=== PATIENT | female | born 1955 | race Caucasian/White ===

== ENCOUNTER 2025-04-19 07:16 | Emergency (ER) | payer BC, MEDICAID ==
[~2025-04-19] VITALS: Ht 152.4 cm; Wt 56.8 kg
[2025-04-19 07:29] VITALS: TEMP 97.8
--- NOTE | 2025-04-19 08:39 | Physician Documentation ---
History of Present Illness ~ Chief Complaint: Knee Pain Stated Complaint: RT KNEE PAIN Time Seen by MD: 08:04 HPI 69-year-old female presenting with leg swelling and right knee pain She reports a history of chronic right knee pain over the past many weeks or months. She states that it is very painful in the morning and then slowly loosens up throughout the day. She states that recently it has become more painful and swollen. She also reports that both of her legs have been swelling, and that earlier this week her ankles with the size of her knees. She denies any specific injury to her knees. She has been walking a lot. She does have blisters on her feet. No fevers. She denies any history of congestive heart failure or kidney problems. She tells me she is mainly concerned about the worsening swelling and right knee pain. Tetanus witin 5 years: No Medication Reconciliation Allergies: Coded Allergies: Penicillins (Verified Allergy, Unknown, HYPERTHERMIA, 04/19/25) Scheduled Furosemide (Lasix), 1 TAB PO DAILY Potassium Chloride (Potassium Chloride), 1 TAB PO DAILY Review of Systems Constitutional: Denies: fever Cardiovascular: Reports: edema Musculoskeletal: Reports: joint pain, joint swelling Physical Exam Vital Signs: Temperature: 97.8, Source: Temporal, Heart Rate: 66, Respiratory Rate: 14, BP: 127/67, Pulse Oximetry: 100, Weight: 56.800 Oxygen Flow Rate: 0 Physical Exam General: This is a calm and pleasant middle-aged woman, does not appear in distress HEENT: Atraumatic, oropharynx is moist Heart: Regular rate and rhythm, normal-appearing peripheral perfusion Lungs: normal work of breathing, normal oxygen saturation on room air Extremities: Warm and well-perfused The patient does have pitting edema to bilateral calves, right slightly worse than left. Right knee: The patient has generalized edema to the right knee, with no overlying erythema, warmth or other skin changes. She has mild tenderness to palpation, worse in the posterior knee. No posterior calf or thigh tenderness. She does have full range of motion to the knee. Neuro: Alert and oriented Psychiatric: Calm and cooperative with exam Progress Results/Orders Results/Orders Orders - TUYET AVILES MD Knee, Complete (04/19/25 08:20) Completed Orders - TUYET AVILES MD Cbc/Diff (04/19/25 08:20) CMP (04/19/25 08:20) D-Dimer (04/19/25 08:20) PBNP (04/19/25 08:20) Knee, Complete (04/19/25 08:20) Vital Signs 04/19/25 04/19/25 04/19/25 07:29 08:24 10:16 Temp 97.8 Pulse 93 66 68 Resp 20 14 14 B/P (MAP) 131/59 127/67 (87) 115/61 Pulse Ox 98 100 100 O2 Flow Rate 0 0 Laboratory Tests Test 04/19/25 08:52 White Blood Count 6.7 Red Blood Count 4.00 L Hemoglobin 11.9 L Hematocrit 36.4 Mean Corpuscular Volume 91.0 Mean Corpuscular Hemoglobin 29.7 Mean Corpuscular Hemoglobin Concent 32.7 L Red Cell Distribution Width 12.9 Platelet Count 314 Mean Platelet Volume 8.2 Neutrophils (%) (Auto) 72.0 Lymphocytes (%) (Auto) 15.9 L Monocytes (%) (Auto) 8.2 Eosinophils (%) (Auto) 3.0 Basophils (%) (Auto) 0.9 Neutrophils # (Auto) 4.8 Lymphocytes # (Auto) 1.1 Monocytes # (Auto) 0.5 Eosinophils # (Auto) 0.2 Basophils # (Auto) 0.1 CBC Comment D-Dimer 0.36 D-Dimer Comment Sodium Level 143 Potassium Level 4.3 Chloride Level 110 H Carbon Dioxide Level 27.8 Anion Gap 5 L Blood Urea Nitrogen 8 Creatinine 0.54 Estimated GFR/1.73 m2 > 90 BUN/Creatinine Ratio 14.8 Glucose Level 107 H Calcium Level 8.8 Total Bilirubin 0.3 Aspartate Amino Transf (AST/SGOT) 69 H Alanine Aminotransferase (ALT/SGPT) 84 H Alkaline Phosphatase 80 Pro-B-Type Natriuretic Peptide 259 H Total Protein 6.4 Albumin 3.4 Globulin 3.0 Albumin/Globulin Ratio 1.1 Chemistry Comments EKG/XRAY/CT/US/VASC/MRI Bone/Soft Tissue X-Ray (Ext.) : Additional Comment I personally interpreted the x-ray, and it shows: No fracture, dislocation or joint effusion to the knee Medical Decision Making Additional information obtaine: N/A Findings na General Diff Dx:Considerations: Include: Contusion, Fracture Knee Diff Dx:Considerations: Include: DJD Ankle Diff Dx:Considerations: Include: Gout, Sprain Foot Diff Dx:Considerations: Unlikely: Fracture-tarsal Toe Diff Dx:Considerations: Unlikely: Neurovascular injury Additional Comment The patient presents with leg swelling and chronic right knee pain. On exam she does have significant edema to her legs. She has no other heart or chest related symptoms. X-ray of the knee shows no acute abnormality. Labs were unre markable including normal kidney function. No findings to suggest a dangerous acute medical or surgical emergency at this time. No evidence to suggest infection. I suspect she has some component of arthritis given her description of the symptoms and frequent walking due to homelessness. Given her edema, she will be prescribed a trial of Lasix and potassium. She will be discharged with outpatient follow up and return precautions. Departure Time of Disposition: 10:00 Disposition: 01 HOME / SELF CARE / HOMELESS Impression: Primary Impression: Bilateral lower extremity edema Additional Impression: Right knee pain Condition: Stable Discharge Instructions: Chronic Knee Pain, Adult, Peripheral Edema Referrals: NO PRIMARY CARE PROVIDER (PCP) Prescriptions Potassium Chloride (Potassium Chloride) 10 Meq Tab.prt.sr 1 TAB PO DAILY for 10 Days, #10 TAB 0 Refills Prov: TUYET AVILES MD 04/19/25 Furosemide (LASIX) 20 Mg Tablet 1 TAB PO DAILY for 10 Days, #10 TAB 0 Refills Prov: TUYET AVILES MD 04/19/25 Education Educated: Patient Educated regarding: diagnosis, treatment, need for follow up Signature Scribe Signature: yan Attestation: TUYET Albirght MD Apr 19, 2025 08:39
--- NOTE | 2025-04-19 08:53 | RADIOLOGY REPORT ---
DI KNEE, COMP 4 VW MIN, INDICATION: Right knee pain and swelling TECHNICAL DATA: Frontal , oblique and lateral views were obtained of the right knee. COMPARISON: None FINDINGS: No fracture is identified. Medial, lateral and patellofemoral compartment joint spaces are maintained. Alignment is anatomic. Soft tissues are within normal limits. No joint effusion is demonstrated. IMPRESSION: No acute fracture or dislocation of the right knee.
[2025-04-19 09:06] LABS: MEAN PLATELET VOLUME 8.2 FL (7.4-10.4); RED CELL DISTRIBUTION WIDTH 12.9 % (11.5-14.5)
[2025-04-19 09:33] LABS: CREATININE 0.54 MG/DL (0.40-0.90); PRO BRAIN NATRIURETIC PEPTIDE 259 PG/ML (0-125); TOTAL CARBON DIOXIDE 27.8 MMOL/L (24-32); eCRCL 73 ML/MIN; eGFR > 90 ML/MIN
[2025-04-19] MEDS ORDERED: FURO-150 PO (10:01)
[2025-04-19] MEDS ORDERED: POTA-205 PO (10:01)
[2025-04-19 10:16] VITALS: BP 115/61; PULSE 68; RESP 14; O2SAT 100
== END 2025-04-19 10:17 | disposition home or self-care (01) ==
LOC: ER 07:17
DX: M25.561 Pain in right knee (principal); R60.0 Localized edema; G89.29 Other chronic pain; Z88.0 Allergy status to penicillin; Z79.899 Other long term (current) drug therapy
CPT/HCPCS: 36415; 73564; 80053; 83880; 85025; 85379; 99284

== ENCOUNTER 2025-05-19 10:52 | Emergency (ER) | payer BC, MEDICAID ==
[~2025-05-19] VITALS: Ht 162.6 cm; Wt 54.0 kg
[~2025-05-19 10:52] MED LIST: FURO-150 PO; POTA-205 PO
[2025-05-19 11:01] VITALS: TEMP 98.4
--- NOTE | 2025-05-19 12:06 | Physician Documentation ---
History of Present Illness ~ Chief Complaint: Leg Pain Stated Complaint: FEET SWELLING Time Seen by MD: 11:33 HPI 69-year-old female with a history of being homeless reports bilateral lower extremity leg pain patient states she walks excessively throughout the day. States that this pain has been ongoing for several months worsened in severity last two weeks says that she has been seeing via local care provider for her complaint in his awaiting an MRI for her right knee. Has a history of blood clots reports the pain has burning Day of Onset: May 19, 2025 Tetanus witin 5 years: No Medication Reconciliation Allergies: Coded Allergies: Penicillins (Verified Allergy, Unknown, HYPERTHERMIA, 05/19/25) Scheduled Furosemide (Lasix), 1 TAB PO DAILY Potassium Chloride (Potassium Chloride), 1 TAB PO DAILY Physical Exam Vital Signs: Temperature: 98.4, Source: Oral, Heart Rate: 71, Respiratory Rate: 16, BP: 132/52, Pulse Oximetry: 100, Weight: 54.000 Oxygen Flow Rate: 0 Progress Results/Orders Results/Orders Completed Orders - PHILIP DAUGHERTY [employer] OPERATOR Cbc/Diff (05/19/25 11:52) BMP (05/19/25 11:52) Gabapentin Capsule (Neurontin Capsule) (05/19/25 12:10) Medications Received in ER Medications (Trade) Dose Ordered Sig/Melissa Route PRN Reason Start Time Stop Time Status Last Admin Dose Admin (Neurontin capsule) 300 mg ONCE ONCE PO 05/19/25 12:10 05/19/25 12:11 DC 05/19/25 12:13 300 MG Vital Signs 05/19/25 05/19/25 05/19/25 05/19/25 10:55 11:00 11:01 13:07 Temp 98.4 98.4 Pulse 81 75 71 77 Resp 18 16 16 16 B/P (MAP) 128/61 132/52 (78) 132/52 (78) 111/54 Pulse Ox 98 98 100 98 O2 Flow Rate 0 0 Laboratory Tests Test 05/19/25 12:00 White Blood Count 7.4 Red Blood Count 4.09 L Hemoglobin 12.2 Hematocrit 36.4 Mean Corpuscular Volume 89.0 Mean Corpuscular Hemoglobin 29.9 Mean Corpuscular Hemoglobin Concent 33.6 Red Cell Distribution Width 12.7 Platelet Count 337 Mean Platelet Volume 8.1 Neutrophils (%) (Auto) 76.3 H Lymphocytes (%) (Auto) 13.5 L Monocytes (%) (Auto) 8.2 Eosinophils (%) (Auto) 1.5 Basophils (%) (Auto) 0.5 Neutrophils # (Auto) 5.7 Lymphocytes # (Auto) 1.0 L Monocytes # (Auto) 0.6 Eosinophils # (Auto) 0.1 Basophils # (Auto) 0.0 CBC Comment Sodium Level 144 Potassium Level 3.6 Chloride Level 110 H Carbon Dioxide Level 27.7 Anion Gap 6 L Blood Urea Nitrogen 12 Creatinine 0.69 Estimated GFR/1.73 m2 85 BUN/Creatinine Ratio 17.4 Glucose Level 85 Calcium Level 9.0 Albumin 3.4 Chemistry Comments Medical Decision Making Additional information obtaine: old records Findings Does not present with any signs of an acute infectious process based on her laboratory values. Treat her for potential neuropathy via gabapentin. However I do not see any current emergencies that require further evaluation. Going to recommend outpatient evaluation General Diff Dx:Considerations: Unlikely: Abrasion, Contusion, Fracture, Hematoma, Laceration, Malunion, Neurovascular injury, Open fracture, Sprain, Ulcer, Other Knee Diff Dx:Considerations: Unlikely: Abrasion, Arthritis, Contusion, DJD, Fracture-femur, Fracture-fibula, Fracture-patella, Fracture-tibia, Gout, Hematoma, Laceration, Meniscus injury, Neurovascular injury, Open fracture, Rheumatoid arthritis, Septic, Sprain, Sprain-MCL, Sprain-LCL, Sprain-ACL, Sprain-PCL, Other Ankle Diff Dx:Considerations: Unlikely: Abrasion, Arthritis, Contusion, DJD, Fracture-metatarsal, Fracture-fibula, Fracture-tarsal, Fracture-tibia, Gout, Hematoma, Laceration, Malunion, Neurovascular injury, Nonunion, Open fracture, Osteomyelitis, Rheumatoid arthritis, Sprain, Septic, Ulcer, Other Foot Diff Dx:Considerations: Include: Abrasion, Arthritis, Cellulitis, Contusion, Dislocation, DJD, Fracture-metatarsal, Fracture-phalynx, Fracture- tarsal, Gout, Hematoma, Ingrown toenail, Laceration, Malunion, Neurovascular injury, Open fracture, Paronychia, Puncture, Rheumatoid, Sprain, Septic, Alejandro bungual hematoma, Ulcer, Other Toe Diff Dx:Considerations: Unlikely: Abrasion, Cellulitis, Contusion, Disl ocation, Felon, Fracture, Hematoma, Laceration, Neurovascular injury, Open fracture, Paronychia, Subungual hematoma, Other Departure Disposition: 01 HOME / SELF CARE / HOMELESS Impression: Primary Impression: Leg cramps Condition: Improved Referrals: NO PRIMARY CARE PROVIDER (PCP) Education Educated: Patient Educated regarding: diagnosis Signature Scribe Signature: g Attestation: Scribed for Philip Daugherty Farm Demonstrator by Philip Alfaro NP . 05/19/25 12:04 PHILIP DAUGHERTY NP May 19, 2025 12:06
[2025-05-19 12:12] LABS: RED CELL DISTRIBUTION WIDTH 12.7 % (11.5-14.5)
[2025-05-19 12:17] LABS: MEAN PLATELET VOLUME 8.1 FL (7.4-10.4)
[2025-05-19 12:22] LABS: CREATININE 0.69 MG/DL (0.40-0.90); TOTAL CARBON DIOXIDE 27.7 MMOL/L (24-32); eCRCL 67 ML/MIN; eGFR 85 ML/MIN
[2025-05-19 13:07] VITALS: BP 111/54; PULSE 77; RESP 16; O2SAT 98
== END 2025-05-19 13:15 | disposition home or self-care (01) ==
LOC: ER 10:53
DX: R25.2 Cramp and spasm (principal); Z88.0 Allergy status to penicillin; Z86.718 Personal history of other venous thrombosis and embolism; Z59.00 Homelessness unspecified; Z79.899 Other long term (current) drug therapy
CPT/HCPCS: 36415; 80048; 85025; 99283